=== PATIENT | female | born 1990 | race African-American/Black ===

== ENCOUNTER 2018-10-10 09:55 | Emergency (ER) | payer OTHER ==
[2018-10-10 10:26] VITALS: BP 106/60; PULSE 55; TEMP 98.6; BMI 20.7
--- NOTE | 2018-10-10 10:56 | PDOC ---
History of Present Illness - General History Source: Patient - History of Present Illness Presenting Symptoms: Other - General Chief Complaint: Chest Pain Stated Complaint: Shortnes of Breath Time Seen by Provider: 10/10/18 10:34 Past History - Past Medical History Asthma: Yes (last attack yrs ago) Cancer: No Cardiac Disorders: No COPD: No Diabetes: No HTN: No Seizures: No Thyroid Disease: No - Reproductive History (#): 3 Para: 0 Cervical CA: No Dysfunctional Uterine Bleeding: No Ectopic : No Endometrial CA: No Polycystic Ovaries: No Therapeutic (s) & number: Yes (2) Tubal Ligation: No - Immunization History Immunization Up to Date: Yes - Suicide/Smoking/Psychosocial Hx Smoking Status: No Smoking History: Current every day smoker Have you smoked in the past 12 months: Yes Number of Cigarettes Smoked Daily: 3 Information on smoking cessation initiated: No Hx Alcohol Use: No Drug/Substance Use Hx: No Substance Use Type: None Hx Substance Use Treatment: No - Past Medical History Allergies/Adverse Reactions: Allergies Allergy/AdvReac Type Severity Reaction Status Date / Time No Known Allergies Allergy Verified 10/10/18 10:19 Home Medications: Ambulatory Orders Ciprofloxacin 0.3% Eye Drops [Ciloxan 0.3% Eye Drops -] 4 drop OD Q4H 06/19/16 Albuterol 0.083% Nebulizer Ifeoma [Ventolin 0.083% Nebulizer Soln -] 1 amp NEB Q6H #30 amp 10/10/18 Prednisone [Deltasone] 40 mg PO DAILY #8 tablet 10/10/18 Review of Systems - Review of Systems HEENTM: Yes: Throat Pain Respiratory: Yes: Shortness of Breath. No: Wheezing Cardiac (ROS): Yes: Chest Tightness : No: Burning, Dysuria, Flank Pain, Hematuria *Physical Exam - Physical Exam General Appearance: Yes: Appropriately Dressed. No: Apparent Distress HEENT: positive: Normal ENT Inspection, Normal Voice. negative: Scleral Icterus (R), Scleral Icterus (L) Neck: positive: Supple. negative: Lymphadenopathy (R), Lymphadenopathy (L) Respiratory/Chest: positive: Lungs Clear, Normal Breath Sounds. negative: Respiratory Distress, Wheezing Cardiovascular: positive: Regular Rate, S1, S2 Integumentary: positive: Dry, Warm Neurologic: positive: Fully Oriented, Alert, Normal Mood/Affect - Vital Signs Last Vital Signs Temp Pulse Resp BP Pulse Ox 98.6 F 55 L 18 106/60 98 10/10/18 10:20 10/10/18 10:20 10/10/18 10:20 10/10/18 10:20 10/10/18 10:20 - Procedure Monitoring Vital Signs: Procedure Monitoring Vital Signs Temperature 98.6 F 10/10/18 10:20 Pulse Rate 55 L 10/10/18 10:20 Respiratory Rate 18 10/10/18 10:20 Blood Pressure 106/60 10/10/18 10:20 O2 Sat by Pulse Oximetry (%) 98 10/10/18 10:20 - ADDITIONAL ORDERS Additional order review: Laboratory Results 10/10/18 11:40 Urine Color Yellow Urine Appearance Slcloudy Urine pH 6.0 Ur Specific [place] 1.027 Urine Protein Negative Urine Glucose (UA) Negative Urine Ketones Negative Urine Blood Negative Urine Nitrite Negative Urine Bilirubin Negative Urine Urobilinogen 4.0 e.u/dl H Ur Leukocyte Esterase Negative Urine HCG, Qual Negative - Medications Given in the ED: ED Medications Discontinued Medications Generic Name Dose Route Start Last Admin Trade Name Matiasq PRN Reason Stop Dose Admin Albuterol/Ipratropium 1 amp 10/10/18 11:00 10/10/18 11:45 Duoneb - NEB 10/10/18 11:46 1 amp Q15M DARIAN Administration Ibuprofen 800 mg 10/10/18 10:57 10/10/18 11:55 Motrin - PO 10/10/18 10:58 800 mg ONCE ONE Administration Prednisone 60 mg 10/10/18 10:57 10/10/18 11:55 Deltasone - PO 10/10/18 10:58 60 mg ONCE ONE Administration Medical Decision Making - Medical Decision Making The patient was seen and evaluated in conjunction with midlevel provider under my direct supervision, ancillary studies were reviewed. I agree with the plan as outlined by JAY Gonzalez. HPI, workup/dispo as outlined. ancillary testing reviewed - neg strep, getting nebs and steroids for asthma. well appearing in vertical chair, VS wnl. discharge in stable condition, return precautions provided. 10/10/18 12:12 (Megan Amador) 10/10/18 10:54 28-year-old female, history of asthma, smoker, here with severe sore throat for 3 days. No ear pain, cough, fever or chills. Also complaining of some shortness of breath and chest tightness for the past 2 days, similar consistent with her asthma. States the pump only relieves symptoms temporarily. States she ran out of the nebulizer solution for her machine. No admissions or intubations in the past. Pt also reports "strong smelling" urine recently. No dysuria, freq, flank pain, n/v/f/c. See exam Asthma flare Stable w/ clear lungs -nebs -pred -reassess Throat pain HEENT wnl -strep pending 10/10/18 14:09 Strep and UA neg. Pt asymptomatic at this time with clear lungs. Able to ambulate without shortness of breath. Will dc with Pred taper. Smoking cessation encouraged (Karel Gonzalez) *DC/Admit/Observation/Transfer Diagnosis at time of Disposition: Sore throat Asthma flare Qualifiers: Asthma severity: mild Asthma persistence: unspecified Qualified Code(s): J45.901 - Unspecified asthma with (acute) exacerbation - Discharge Dispostion Disposition: HOME Condition at time of disposition: Improved - Prescriptions Prescriptions: Albuterol 0.083% Nebulizer Ifeoma [Ventolin 0.083% Nebulizer Soln -] 1 amp NEB Q6H #30 amp Prednisone [Deltasone] 40 mg PO DAILY #8 tablet - Referrals Referrals: Bob Kendall MD [Primary Care Provider] - - Patient Instructions Printed Discharge Instructions: DI for Asthma -- Adult Additional Instructions: Take medications as prescribed and strongly consider smoking cessation - Post Discharge Activity Forms/Work/School Notes: Back to Work
[2018-10-10] MEDS ORDERED: IBUPROFEN 400 MG TABLET (FP) PO ONE ×2 (10:57→11:20)
[2018-10-10] MEDS ORDERED: predniSONE 20 MG TABLET (UD) PO ONE (10:57)
[2018-10-10] MEDS: ALBUTEROL SO4 2.5/IPRATROPIUM 0.5 INH SOL 3 ML VIAL.NEB. NEB SCH ×4 (11:00→11:45)
[2018-10-10] MEDS ORDERED: predniSONE 20 MG TABLET (UD) ONE (11:20)
[2018-10-10] MEDS ORDERED: ALBUTEROL SO4 2.5/IPRATROPIUM 0.5 INH SOL 3 ML VIAL.NEB. NEB ONE (11:20)
[2018-10-10 13:14] LABS: URINE APPEARANCE SLCLOUDY; URINE BILIRUBIN NEGATIVE (<2.0 mg/dL); URINE COLOR YELLOW; URINE GLUCOSE (UA) NEGATIVE (NEGATIVE); URINE KETONE NEGATIVE (NEGATIVE); URINE LEUK ESTERASE NEGATIVE (NEGATIVE); URINE NITRITE NEGATIVE (NEGATIVE); URINE PROTEIN NEGATIVE (NEGATIVE); URINE UROBILINOGEN 4.0 E.U/dl mg/dL (0.2-1.0)
[2018-10-10 13:15] LABS: HCG,QUALITATIVE URINE Negative
--- NOTE | 2018-10-12 11:57 | EKG ---
Test Reason : Blood Pressure : / mmHG Vent. Rate : 098 BPM Atrial Rate : 029 BPM P-R Int : 160 ms QRS Dur : 090 ms QT Int : 382 ms P-R-T Axes : 054 056 -17 degrees QTc Int : 487 ms MARKED SINUS BRADYCARDIA WITH FREQUENT and consecutive PREMATURE VENTRICULAR COMPLEXES nonsustained Ventricular tachycardia - 6 beats POSSIBLE LEFT ATRIAL ENLARGEMENT NONSPECIFIC ST ABNORMALITY ABNORMAL QRS-T ANGLE, CONSIDER PRIMARY T WAVE ABNORMALITY ABNORMAL ECG NO PREVIOUS ECGS AVAILABLE Confirmed by NATI GUEVARA, ESTELA ([id number]) on 10/12/2018 11:56:35 AM Referred By: Confirmed By:ESTELA DAMIAN MD
== END 2018-10-10 15:47 | disposition home or self-care (01) ==
LOC: JER 09:55
PROC: 3E0F7GC Introduction of Other Therapeutic Substance into Respiratory Tract, Via Natural or Artificial Opening (ICD-10-PCS; principal; 2018-10-10)
DX: J45.901 Unspecified asthma with (acute) exacerbation (principal); J02.9 Acute pharyngitis, unspecified; F17.210 Nicotine dependence, cigarettes, uncomplicated
CPT/HCPCS: 81003; 84703; 87070; 87086; 87186; 87880; 93005; 93010; 94640; 99281-25

== ENCOUNTER 2019-01-03 14:07 | Emergency (ER) | payer OTHER ==
--- NOTE | 2019-01-03 14:16 | PDOC ---
Rapid Medical Evaluation Time Seen by Provider: 01/03/19 14:14 Medical Evaluation: Allergies Allergy/AdvReac Type Severity Reaction Status Date / Time No Known Allergies Allergy Verified 01/03/19 14:14 01/03/19 14:14 I have performed a brief in-person evaluation of this patient. The patient presents with a chief complaint of: vomiting x days- LMP- "October " Pertinent physical exam findings: Abd SNTND. No CVAT. I have ordered the following: UA, upreg, labs The patient will proceed to the ED for further evaluation. Discharge Disposition - Diagnosis Vomiting - Referrals - Patient Instructions - Post Discharge Activity
[2019-01-03 14:17] VITALS: BP 112/68; PULSE 72; TEMP 97.6; BMI 21.9
[2019-01-03] MEDS ORDERED: SODIUM CHLORIDE 1,000 ML IV STA (14:17)
[2019-01-03] MEDS ORDERED: ONDANSETRON 4 MG/2 ML VIAL IVPUSH ONE (14:17)
[2019-01-03 14:50] LABS: BASO % 0.6 % (0-2.0); HEMATOCRIT 42.7 % (32.4-45.2); HEMOGLOBIN 14.5 GM/dL (10.7-15.3); LYMPH % 18.3 % (8-40); MCH 31.3 pg (25.7-33.7); MCHC 34.1 g/dl (32.0-36.0); MEAN CELL VOLUME 91.8 fl (80-96); MEAN PLT VOLUME 9.3 fl (7.5-11.1); MONO % 6.5 % (3.8-10.2); NEUT % 71.6 % (42.8-82.8); PLATELET COUNT 184 K/MM3 (134-434); RBC 4.65 M/mm3 (3.60-5.2); RDW 12.6 % (11.6-15.6); WHITE BLOOD COUNT 8.9 K/mm3 (4.0-10.0)
[2019-01-03 14:58] LABS: PH,URINE 6.5 (5.0-8.0); URINE APPEARANCE CLEAR; URINE BILIRUBIN NEGATIVE (NEGATIVE); URINE COLOR YELLOW; URINE GLUCOSE (UA) NEGATIVE (NEGATIVE); URINE KETONE NEGATIVE (NEGATIVE); URINE LEUK ESTERASE NEGATIVE (NEGATIVE); URINE NITRITE NEGATIVE (NEGATIVE); URINE PROTEIN NEGATIVE (NEGATIVE)
--- NOTE | 2019-01-03 15:14 | PDOC ---
History of Present Illness - General Chief Complaint: Nausea/Vomiting Stated Complaint: VOMITING Time Seen by Provider: 01/03/19 14:14 History Source: Patient Exam Limitations: No Limitations - History of Present Illness Travel History: No Initial Comments: 01/03/19 15:11 28 y/o female with hx of asthma presents to the ED with c/o n/v, mild dysuria, and lower abd cramping x 3 days without fever, diarrhea, headache, abd distention, or recent travel. Pt states LMP in Oct and had her IUD removed in august. Pt has no other complaints and states did not do a home preg test. Timing/Duration: reports: constant Quality: reports: mild, cramping Abdominal Pain Onset Location: reports: suprapubic (generalized) Pain Radiation: reports: no radiation Aggravating Factors: improves with: None Alleviating Factors: improves with: None Past History - Travel Traveled outside of the country in the last 30 days: No Close contact w/someone who was outside of country & ill: No - Past Medical History Allergies/Adverse Reactions: Allergies Allergy/AdvReac Type Severity Reaction Status Date / Time No Known Allergies Allergy Verified 01/03/19 14:14 Home Medications: Ambulatory Orders Ciprofloxacin 0.3% Eye Drops [Ciloxan 0.3% Eye Drops -] 4 drop OD Q4H 06/19/16 Albuterol 0.083% Nebulizer Ifeoma [Ventolin 0.083% Nebulizer Soln -] 1 amp NEB Q6H #30 amp 10/10/18 Prednisone [Deltasone] 40 mg PO DAILY #8 tablet 10/10/18 Cephalexin [Keflex] 500 mg PO BID #14 capsule 10/12/18 Asthma: Yes (last attack yrs ago) Cancer: No Cardiac Disorders: No COPD: No Diabetes: No HTN: No Seizures: No Thyroid Disease: No - Reproductive History (#): 3 Para: 0 Cervical CA: No Dysfunctional Uterine Bleeding: No Ectopic : No Endometrial CA: No Polycystic Ovaries: No Therapeutic (s) & number: Yes (2) Tubal Ligation: No - Immunization History Immunization Up to Date: Yes - Suicide/Smoking/Psychosocial Hx Smoking Status: No Smoking History: Never smoked Have you smoked in the past 12 months: Yes Number of Cigarettes Smoked Daily: 3 Information on smoking cessation initiated: No Hx Alcohol Use: No Drug/Substance Use Hx: No Substance Use Type: None Hx Substance Use Treatment: No Patient Lives Alone: No Lives with/in: parents Review of Systems - Review of Systems Able to Perform ROS?: Yes Constitutional: No: Symptoms Reported HEENTM: No: Symptoms Reported Respiratory: No: Symptoms reported Cardiac (ROS): No: Symptoms Reported ABD/GI: Yes: Nausea, Vomiting, Abdominal cramping : Yes: Dysuria Musculoskeletal: No: Symptoms Reported Integumentary: No: Symptoms Reported Neurological: No: Symptoms reported Endocrine: No: Symptoms Reported Hematologic/Lymphatic: No: Symptoms Reported *Physical Exam - Vital Signs Last Vital Signs Temp Pulse Resp BP Pulse Ox 97.6 F 72 20 112/68 100 01/03/19 14:14 01/03/19 14:14 01/03/19 14:14 01/03/19 14:14 01/03/19 14:14 - Physical Exam General Appearance: Yes: Nourished, Appropriately Dressed. No: Apparent Distress HEENT: positive: Pharynx Normal Neck: positive: Normal Thyroid, Supple Respiratory/Chest: positive: Lungs Clear, Normal Breath Sounds. negative: Respiratory Distress, Accessory Muscle Use Cardiovascular: positive: Regular Rhythm, Regular Rate. negative: Murmur Gastrointestinal/Abdominal: positive: Normal Bowel Sounds, Soft, Tenderness ( mild left and mid suparpubic/ llq). negative: Distended, Guarding, Rebound Musculoskeletal: negative: CVA Tenderness Extremity: positive: Normal Capillary Refill Integumentary: positive: Normal Color, Warm, Moist Neurologic: positive: Motor Strength 5/5 (ambulatory) ED Treatment Course - LABORATORY CBC & Chemistry Diagram: 01/03/19 14:40 01/03/19 14:40 - ADDITIONAL ORDERS Additional order review: 01/03/19 14:40 RBC 4.65 MCV 91.8 MCHC 34.1 RDW 12.6 MPV 9.3 D Neutrophils % 71.6 Lymphocytes % 18.3 D Monocytes % 6.5 Eosinophils % 3.0 D Basophils % 0.6 Medical Decision Making - Medical Decision Making 01/03/19 15:16 CC: llq / left suprapubic pain w/ n/v x 3 days. Pt also c/o of mild dysuria and dark colored urine. LMP 11/15 Exam: mild tenderness to llq and suprapubic region Plan: labs, urine, ivf, zofran 01/03/19 15:18 Laboratory Tests 01/03/19 14:47 Urine Nitrite Negative Ur Leukocyte Esterase Negative Urine HCG, Qual Positive Pt ordered for tv preg u/s 01/03/19 17:35 Laboratory Tests 01/03/19 01/03/19 01/03/19 14:40 14:40 14:47 WBC 8.9 Hgb 14.5 Hct 42.7 Plt Count 184 D Neutrophils % 71.6 Sodium 135 L Potassium 3.7 Chloride 100 Carbon Dioxide 26 Anion Gap 9 BUN 9 Creatinine 0.7 Random Glucose 90 AST 19 ALT 18 Alkaline Phosphatase 63 Albumin 3.4 Beta HCG, Quant 90252.8 Urine Bilirubin Negative Urine Urobilinogen 1.0 Ur Leukocyte Esterase Negative U/s shows IUP at 9 wks and 6 days. FHR 165. Normal vasc flow to kurtis ovaries *DC/Admit/Observation/Transfer Diagnosis at time of Disposition: Nausea and vomiting during - Discharge Dispostion Disposition: HOME Condition at time of disposition: Improved - Referrals Referrals: Bob Kendall MD [Primary Care Provider] - - Patient Instructions Printed Discharge Instructions: Managing Symptoms of , DI for -- Discomforts and Remedies Additional Instructions: Please start vitamins. Follow up with your HAND STONECUTTER and return if you have abd pain, vag bleeding, or severe vomiting - Post Discharge Activity
[2019-01-03 15:16] LABS: HCG,QUALITATIVE URINE Positive
[2019-01-03] MEDS ORDERED: ONDANSETRON 4 MG/2 ML VIAL ONE (15:24)
[2019-01-03 15:48] LABS: ALBUMIN 3.4 g/dl (3.4-5.0); ALK PHOS 63 U/L (45-117); ANION GAP 9 MMOL/L (8-16); BILIRUBIN,TOTAL 0.8 mg/dL (0.2-1); BLOOD UREA NITROGEN 9 mg/dL (7-18); CALCIUM 8.6 mg/dL (8.5-10.1); CHLORIDE 100 mmol/L (98-107); CO2 26 mmol/L (21-32); CREATININE 0.7 mg/dL (0.55-1.3); GLUCOSE,RANDOM 90 mg/dL (74-106); POTASSIUM 3.7 mmol/L (3.5-5.1); SGOT/AST 19 U/L (15-37); SGPT/ALT 18 U/L (13-61); SODIUM 135 mmol/L (136-145); TOT PROT 7.5 g/dl (6.4-8.2)
[2019-01-05 09:14] LABS: LIPASE 152 U/L (73-393)
== END 2019-01-03 18:22 | disposition home or self-care (01) ==
LOC: JER 14:07
PROC: 3E0337Z Introduction of Electrolytic and Water Balance Substance into Peripheral Vein, Percutaneous Approach (ICD-10-PCS; principal; 2019-01-03)
PROC: 3E033GC Introduction of Other Therapeutic Substance into Peripheral Vein, Percutaneous Approach (ICD-10-PCS; 2019-01-03)
DX: O26.891 Other specified pregnancy related conditions, first trimester (principal); O21.0 Mild hyperemesis gravidarum; Z3A.09 9 weeks gestation of pregnancy
CPT/HCPCS: 36415; 76801-TC; 80053; 81003; 83690; 84702; 84703; 85025; 87086; 87186; 96361; 96374; 99282-25; J7030

== ENCOUNTER 2019-07-26 16:26 | Emergency (ER) | payer OTHER ==
--- NOTE | 2019-07-26 16:32 | PDOC ---
Rapid Medical Evaluation Chief Complaint: Vaginal Bleeding Time Seen by Provider: 07/26/19 16:29 Medical Evaluation: Allergies Allergy/AdvReac Type Severity Reaction Status Date / Time No Known Allergies Allergy Verified 01/03/19 14:14 07/26/19 16:30 Pt c/o:vag bleeding since today, passed large clot in toilet Pt on brief exam: vss, brb in sanitary pad PT ordered for: labs, urine, u/s pt to proceed to the ED Discharge Disposition - Diagnosis Vaginal bleeding - Discharge Dispostion Disposition: HOME Condition at time of disposition: Fair - Referrals - Patient Instructions Additional Instructions: Take your vitamins. Keep well-hydrated. Tylenol only for pain. Avoid medicines like Advil, Motrin, Naprosyn, Aleve or ibuprofen as this can lead to increased bleeding. Return to the emergency department for 2 days for repeat blood work and sonogram. Return to the emergency department immediately for severe pain, vaginal bleeding that requires more than 2 pads per hour or for any other symptoms. Thank you very much for choosing us to provide your emergent health care needs. - Post Discharge Activity
[2019-07-26 16:34] VITALS: BMI 21.4
[2019-07-26 17:06] LABS: BASO % 1.1 % (0-2.0); EOS % 2.3 % (0-4.5); HEMATOCRIT 43.3 % (32.4-45.2); HEMOGLOBIN 14.3 GM/dL (10.7-15.3); LYMPH % 29.2 % (8-40); MCH 29.7 pg (25.7-33.7); MCHC 32.9 g/dl (32.0-36.0); MEAN CELL VOLUME 90.1 fl (80-96); MEAN PLT VOLUME 8.7 fl (7.5-11.1); MONO % 5.8 % (3.8-10.2); NEUT % 61.6 % (42.8-82.8); PLATELET COUNT 270 K/MM3 (134-434); RDW 13.1 % (11.6-15.6); WHITE BLOOD COUNT 12.2 K/mm3 (4.0-10.0)
[2019-07-26 17:09] LABS: EPI CELLS 1.4 /HPF (0-5/HPF); HYALINE CASTS 1 /lpf (0-8); PH,URINE 5.5 (5.0-8.0); URINE APPEARANCE CLEAR; URINE BACTERIA 130.9 /hpf (NEGATIVE); URINE BILIRUBIN NEGATIVE (NEGATIVE); URINE COLOR RED; URINE GLUCOSE (UA) NEGATIVE (NEGATIVE); URINE KETONE NEGATIVE (NEGATIVE); URINE LEUK ESTERASE TRACE (NEGATIVE); URINE NITRITE NEGATIVE (NEGATIVE); URINE PROTEIN 2+ (NEGATIVE); URINE RBC 1875 /hpf (0-4); URINE UROBILINOGEN 0.2 mg/dL (0.2-1.0); URINE WBC 3 /hpf (0-5)
[2019-07-26] MEDS ORDERED: ACETAMINOPHEN 500 MG TABLET (FP) PO ONE (17:18)
[2019-07-26] MEDS ORDERED: ACETAMINOPHEN 500 MG TABLET (FP) ONE (17:24)
--- NOTE | 2019-07-26 17:39 | PDOC ---
History of Present Illness - General Chief Complaint: Vaginal Bleeding Stated Complaint: VAGINAL BLEED LMP 05/30/19 Time Seen by Provider: 07/26/19 16:29 History Source: Patient Exam Limitations: No Limitations - History of Present Illness Travel History: No Initial Comments: 07/26/19 17:27 HISTORY OF PRESENT ILLNESS: This is a 29-year-old G4, P1 with LMP 06/09/2019 presents to the emergency department with vaginal bleeding with clots and lower abdominal cramping starting today. Patient reports she had a positive home test 2 weeks ago and is scheduled for first visit on Wednesday. She denies urinary symptoms. No recent travel or sick contacts. PAST MEDICAL HISTORY: Denies past medical history SURGICAL HISTORY: Denies ALLERGIES: No known drug allergies REVIEW OF SYSTEMS General/Constitutional: Denies fever or chills. Denies weakness, weight change. HEENT: Denies change in vision. Denies ear pain or discharge. Denies sore throat. Cardiovascular: Denies chest pain or shortness of breath. Respiratory: Denies cough, wheezing, or hemoptysis. Gastrointestinal: Denies nausea, vomiting, diarrhea or constipation. Denies rectal bleeding. Genitourinary: See HPI Musculoskeletal: Denies joint or muscle swelling or pain. Denies neck or back pain. Skin and breasts: Denies rash or easy bruising. Neurologic: Denies headache, vertigo, loss of consciousness, or loss of sensation. Psychiatric: Denies depression or anxiety. Endocrine: Denies increased thirst. Denies abnormal weight change. Hematologic/Lymphatic: Denies anemia, easy bleeding, or history of blood clots. Allergic/Immunologic: Denies hives or skin allergy. Denies latex allergy. PHYSICAL EXAM General Appearance: Well-appearing, appropriately dressed. No apparent distress , no intoxication. Respiratory/Chest: Lungs CTAB. No shortness of breath, chest tenderness, respiratory distress, accessory muscle use. No crackles, rales, rhonchi, stridor , wheezing, dullness Cardiovascular: RRR. S1, S2. No JVD, murmur, bradycardia, tachycardia. Vascular Pulses: Dorsalis-Pedis (R): 2+, Dorsalis-Pedis (L): 2+ Gastrointestinal/Abdominal: Normal bowel sounds. Abdomen soft, non-distended. No tenderness or rebound tenderness. No organomegaly, pulsatile mass, guarding, hernia, hepatomegaly, splenomegaly. Past History - Past Medical History Allergies/Adverse Reactions: Allergies Allergy/AdvReac Type Severity Reaction Status Date / Time No Known Allergies Allergy Verified 07/26/19 16:33 Home Medications: Ambulatory Orders Albuterol 0.083% Nebulizer Ifeoma [Ventolin 0.083% Nebulizer Soln -] 1 amp NEB Q6H #30 amp 10/10/18 Asthma: Yes (last attack yrs ago) Cancer: No Cardiac Disorders: No COPD: No Diabetes: No HTN: No Seizures: No Thyroid Disease: No - Reproductive History (#): 3 Para: 0 Cervical CA: No Dysfunctional Uterine Bleeding: No Ectopic : No Endometrial CA: No Polycystic Ovaries: No Therapeutic (s) & number: Yes (2) Tubal Ligation: No - Immunization History Immunization Up to Date: Yes - Psycho Social/Smoking Cessation Hx Smoking Status: No Smoking History: Never smoked Have you smoked in the past 12 months: Yes Number of Cigarettes Smoked Daily: 3 Information on smoking cessation initiated: No Hx Alcohol Use: No Drug/Substance Use Hx: No Substance Use Type: None Hx Substance Use Treatment: No *Physical Exam - Vital Signs Last Vital Signs Temp Pulse Resp BP Pulse Ox 98.2 F 60 17 118/65 99 07/26/19 16:31 07/26/19 16:31 07/26/19 16:31 07/26/19 16:31 07/26/19 16:55 - Physical Exam Comments:: 07/26/19 18:54 RN Delia present as painting manager. Female Pelvic Exam: positive: normal external exam, cervical os closed, normal adnexa, vaginal bleeding (No pulling noted. No blood clots seen.). negative: CMT, discharge ED Treatment Course - LABORATORY CBC & Chemistry Diagram: 07/26/19 16:41 07/26/19 16:41 - ADDITIONAL ORDERS Additional order review: Laboratory Results 07/26/19 16:41 Urine Color Red Urine Appearance Clear Urine pH 5.5 Ur Specific [place] 1.008 L Urine Protein 2+ H Urine Glucose (UA) Negative Urine Ketones Negative Urine Blood 3+ H Urine Nitrite Negative Urine Bilirubin Negative Urine Urobilinogen 0.2 Ur Leukocyte Esterase Trace Urine WBC (Auto) 3 Urine RBC (Auto) 1875 Urine Casts (Auto) 1 U Epithel Cells (Auto) 1.4 Urine Bacteria (Auto) 130.9 Medical Decision Making - Medical Decision Making 07/26/19 17:38 A/P: 29-year-old woman with vaginal bleeding in early Labs and ultrasound per RME Tylenol 1 g orally now Reassess 07/26/19 18:18 Ultrasound is read by Dr. Hernández: Uterus is normal in size measuring 10 x 6.5 x 5.2 cm. No uterine masses are seen. Thickened endometrium of 1.6 cm is identified. There is no sonographic evidence of a viable intrauterine gestation. If a very early is clinically suspected correlation with serial beta hCG levels and follow-up ultrasound is recommended. The ovaries are normal in size and texture with arterial and venous flow documented to both ovaries. There is no evidence of adnexal masses or free pelvic fluid collections. Impression: Essentially normal pelvic sonogram with no sonographic evidence of a viable intrauterine gestation. 07/26/19 18:52 Blood type is B+. Beta-hCG 3574. Urinalysis shows 3+ blood, 2+ protein and 1875 RBCs Given closed cervical loss and ultrasound findings it is unknown whether the patient has completed a miscarriage or is having vaginal bleeding in early . Patient has been instructed return in 2 days for repeat lab work and ultrasound. I discussed the physical exam findings, ancillary test results and final diagnoses with the patient. I answered all of the patient's questions. The patient was satisfied with the care received and felt comfortable with the discharge plan and treatment plan. The patient will call their primary care physician within 24 hours to arrange follow-up and will return to the Emergency Department with any new, persistent or worsening symptoms. Discharge - Discharge Information Problems reviewed: Yes Clinical Impression/Diagnosis: Vaginal bleeding Condition: Fair Disposition: HOME - Admission No - Follow up/Referral - Patient Discharge Instructions Additional Instructions: Take your vitamins. Keep well-hydrated. Tylenol only for pain. Avoid medicines like Advil, Motrin, Naprosyn, Aleve or ibuprofen as this can lead to increased bleeding. Return to the emergency department for 2 days for repeat blood work and sonogram. Return to the emergency department immediately for severe pain, vaginal bleeding that requires more than 2 pads per hour or for any other symptoms. Thank you very much for choosing us to provide your emergent health care needs. - Post Discharge Activity
[2019-07-26 17:47] LABS: BILIRUBIN,TOTAL 0.8 mg/dL (0.2-1); BLOOD UREA NITROGEN 11.2 mg/dL (7-18); CALCIUM 9.6 mg/dL (8.5-10.1); CREATININE 0.8 mg/dL (0.55-1.3); POTASSIUM 3.8 mmol/L (3.5-5.1); TOT PROT 7.9 g/dl (6.4-8.2)
[2019-07-26 18:06] VITALS: BP 119/59; PULSE 79; TEMP 97.5
== END 2019-07-26 19:07 | disposition home or self-care (01) ==
LOC: JER 16:26
DX: N93.9 Abnormal uterine and vaginal bleeding, unspecified (principal); J45.909 Unspecified asthma, uncomplicated; Z72.0 Tobacco use
CPT/HCPCS: 36415; 76817-TC; 80053; 81003; 84702; 85025; 86850; 86900; 86901; 87086; 87186; 99283-25

== ENCOUNTER 2019-07-28 17:10 | Emergency (ER) | payer OTHER ==
[2019-07-28 17:17] VITALS: BP 103/53; PULSE 85; TEMP 98.1; BMI 21.4
--- NOTE | 2019-07-28 17:18 | PDOC ---
Rapid Medical Evaluation Chief Complaint: Vaginal Bleeding Time Seen by Provider: 07/28/19 17:13 Medical Evaluation: Allergies Allergy/AdvReac Type Severity Reaction Status Date / Time No Known Allergies Allergy Verified 07/28/19 17:16 Vital Signs Temp Pulse Resp BP Pulse Ox 98.1 F 85 18 103/53 L 99 07/28/19 17:15 07/28/19 17:15 07/28/19 17:15 07/28/19 17:15 07/28/19 17:15 07/28/19 17:17 Pt c/o: here for repeat u/s and beta, still with vag bleeding and abd cramping Pt on brief exam: vss, brb on pad Pt ordered for: beta hcg and u/s Pt proceed to the ED Discharge Disposition - Diagnosis Miscarriage - Discharge Dispostion Disposition: HOME Condition at time of disposition: Stable - Referrals - Patient Instructions Additional Instructions: Make an appointment with your TELETYPESETTER MONITOR for reevaluation. Return to the emergency department immediately for severe pain, vaginal bleeding that requires more than 2 pads per hour or for any other symptoms. Thank you very much for choosing us to provide your emergent health care needs. - Post Discharge Activity
--- NOTE | 2019-07-28 17:57 | PDOC ---
History of Present Illness - General Chief Complaint: Vaginal Bleeding Stated Complaint: MISSCARRIAGE F/UP Time Seen by Provider: 07/28/19 17:13 History Source: Patient Exam Limitations: No Limitations - History of Present Illness Initial Comments: 07/28/19 17:56 HISTORY OF PRESENT ILLNESS: This is a 29-year-old woman who presents to the emergency department for repeat beta and ultrasound testing. Patient was seen and evaluated in this emergency department 2 days ago and was noted to have some vaginal bleeding and no identifiable on ultrasound. Patient likely had a miscarriage on that day but is here for reevaluation of beta. Asymptomatic at present. No recent travel or sick contacts. PAST MEDICAL HISTORY: Denies past medical history SURGICAL HISTORY: Denies ALLERGIES: No known drug allergies REVIEW OF SYSTEMS General/Constitutional: Denies fever or chills. Denies weakness, weight change. HEENT: Denies change in vision. Denies ear pain or discharge. Denies sore throat. Cardiovascular: Denies chest pain or shortness of breath. Respiratory: Denies cough, wheezing, or hemoptysis. Gastrointestinal: Denies nausea, vomiting, diarrhea or constipation. Denies rectal bleeding. Genitourinary: See HPI Musculoskeletal: Denies joint or muscle swelling or pain. Denies neck or back pain. Skin and breasts: Denies rash or easy bruising. Neurologic: Denies headache, vertigo, loss of consciousness, or loss of sensation. Psychiatric: Denies depression or anxiety. Endocrine: Denies increased thirst. Denies abnormal weight change. Hematologic/Lymphatic: Denies anemia, easy bleeding, or history of blood clots. Allergic/Immunologic: Denies hives or skin allergy. Denies latex allergy. PHYSICAL EXAM General Appearance: Well-appearing, appropriately dressed. No apparent distress , no intoxication. Gastrointestinal/Abdominal: Normal bowel sounds. Abdomen soft, non-distended. No tenderness or rebound tenderness. No organomegaly, pulsatile mass, guarding, hernia, hepatomegaly, splenomegaly. Past History - Past Medical History Allergies/Adverse Reactions: Allergies Allergy/AdvReac Type Severity Reaction Status Date / Time No Known Allergies Allergy Verified 07/28/19 17:16 Home Medications: Ambulatory Orders Albuterol 0.083% Nebulizer Ifeoma [Ventolin 0.083% Nebulizer Soln -] 1 amp NEB Q6H PRN 07/28/19 Asthma: Yes (last attack yrs ago) Cancer: No Cardiac Disorders: No COPD: No Diabetes: No HTN: No Seizures: No Thyroid Disease: No - Reproductive History (#): 3 Para: 0 Cervical CA: No Dysfunctional Uterine Bleeding: No Ectopic : No Endometrial CA: No Polycystic Ovaries: No Therapeutic (s) & number: Yes (2) Tubal Ligation: No - Immunization History Immunization Up to Date: Yes - Psycho Social/Smoking Cessation Hx Smoking Status: No Smoking History: Never smoked Have you smoked in the past 12 months: Yes Number of Cigarettes Smoked Daily: 3 Hx Alcohol Use: No Drug/Substance Use Hx: No Substance Use Type: None Hx Substance Use Treatment: No *Physical Exam - Vital Signs Last Vital Signs Temp Pulse Resp BP Pulse Ox 98.1 F 85 18 103/53 L 99 07/28/19 17:15 07/28/19 17:15 07/28/19 17:15 07/28/19 17:15 07/28/19 17:15 Medical Decision Making - Medical Decision Making 07/28/19 17:57 A/P: 29-year-old woman for reevaluation of Beta-hCG Transvaginal ultrasound Reassess 07/28/19 19:06 Ultrasound was read by Dr. Lawson: Comparison to an exam of 07/26/2019 development of a 0.7 cm fluid structure is seen within the endometrial canal without definite associated yolk sac or embryonic pole at this time.? Representing an early true gestational sac versus a pseudo-gestational sac associated with ectopic . Otherwise clinically indicated correlate with close follow-up sonography. Beta hCG-702.5 today. On 07/26/2019- 3574. Discharge home to follow-up with OB I discussed the physical exam findings, ancillary test results and final diagnoses with the patient. I answered all of the patient's questions. The patient was satisfied with the care received and felt comfortable with the discharge plan and treatment plan. The patient will call their primary care physician within 24 hours to arrange follow-up and will return to the Emergency Department with any new, persistent or worsening symptoms. Discharge - Discharge Information Problems reviewed: Yes Clinical Impression/Diagnosis: Miscarriage Condition: Stable Disposition: HOME - Admission No - Follow up/Referral - Patient Discharge Instructions Additional Instructions: Make an appointment with your WEB ENGINEER for reevaluation. Return to the emergency department immediately for severe pain, vaginal bleeding that requires more than 2 pads per hour or for any other symptoms. Thank you very much for choosing us to provide your emergent health care needs. - Post Discharge Activity
== END 2019-07-28 19:27 | disposition home or self-care (01) ==
LOC: JER 17:10
DX: O26.891 Other specified pregnancy related conditions, first trimester (principal); O03.4 Incomplete spontaneous abortion without complication; Z3A.00 Weeks of gestation of pregnancy not specified
CPT/HCPCS: 36415; 76817-TC; 84702; 99281-25

== ENCOUNTER 2020-05-25 09:35 | Inpatient (IN) | payer OTHER ==
[2020-05-25] MEDS ORDERED: ELECTROLYTE-148 SOLN 1,000 ML IV SCH (09:50)
[2020-05-25] MEDS ORDERED: AMPICILLIN - 2 GM in SODIUM CHLORIDE 100 ML IVPB ONE (09:50)
[2020-05-25] MEDS ORDERED: BUTORPHANOL TARTRATE 1 MG/ML VIAL IVPB ONE (09:50)
[2020-05-25] MEDS ORDERED: PROMETHAZINE HCL 25 MG/1 ML VIAL IVPB ONE (09:50)
[2020-05-25 10:42] VITALS: BMI 27.1
[2020-05-25] MEDS ORDERED: DEXTROSE 5%-LACTATED RINGERS 1,000 ML IV SCH (11:15)
[2020-05-25 11:18] LABS: BASO % 0.4 % (0-2.0); EOS % 1.9 % (0-4.5); HEMATOCRIT 36.4 % (32.4-45.2); HEMOGLOBIN 12.1 GM/dL (10.7-15.3); LYMPH % 12.8 % (8-40); MCH 29.8 pg (25.7-33.7); MCHC 33.3 g/dl (32.0-36.0); MEAN CELL VOLUME 89.5 fl (80-96); MONO % 8.3 % (3.8-10.2); NEUT % 76.6 % (42.8-82.8); PLATELET COUNT 120 K/MM3 (134-434); RBC 4.06 M/mm3 (3.60-5.2); RDW 13.2 % (11.6-15.6); WHITE BLOOD COUNT 12.8 K/mm3 (4.0-10.0)
[2020-05-25] MEDS ORDERED: OXYTOCIN 20 UNITS in 0.9% NS 20 UNIT/1,000 ML INFUS.BAG IV ONE (11:21)
[2020-05-25 11:25] LABS: INR 0.95 (0.83-1.09); PROTHROMBIN TIME (PATIENT) 11.2 SEC (9.7-13.0)
[2020-05-25 11:27] LABS: ACTIVATED PTT 29.8 SECONDS (25.2-36.5)
--- NOTE | 2020-05-25 11:31 | HP ---
Past Medical History - Admission Chief Complaint: Labor pain History of Present Illness: 30 yo @ 38 weeks gestation, EDC 06/05/20, admitted for labor pain. Upon admission she was 6cm dilated. History Source: Patient Limitations to Obtaining History: No Limitations - Past Medical History ...: 2 ...Para: 1 ...Term: 1 ...: 0 ...Spon : 0 ...Induced : 0 ...Living Children: 0 ...Multiple Gestation: 0 ...LMP: 08/30/19 ... Weeks Gestation by Dates: 38.3 ...EDC by Dates: 06/05/20 - Past Surgical History Past Surgical History: Yes: None Hx Myomectomy: No Hx Transabdominal Cerclage: No - Smoking History Smoking history: Never smoked Have you smoked in the past 12 months: No Aproximately how many cigarettes per day: 3 - Alcohol/Substance Use Hx Alcohol Use: No History of Substance Use: reports: None - Social History Usual Living Arrangement: Yes: With Significant Other History of Recent Travel: No Home Medications - Allergies Allergies/Adverse Reactions: Allergies Allergy/AdvReac Type Severity Reaction Status Date / Time No Known Allergies Allergy Verified 05/25/20 10:20 - Home Medications Home Medications: Ambulatory Orders Ferrous Sulfate [Feosol] 325 mg PO DAILY 05/25/20 Pnv No.95/Ferrous Fum/Folic AC [ Vitamin Tablet] 1 each PO DAILY 05/25/20 Family Medical History Family History: Unremarkable Review of Systems - Review of Systems Constitutional: reports: No Symptoms Eyes: reports: No Symptoms HENT: reports: No Symptoms Neck: reports: No Symptoms Cardiovascular: reports: No Symptoms Respiratory: reports: No Symptoms Gastrointestinal: reports: No Symptoms Genitourinary: reports: Pain Breasts: reports: No Symptoms Reported Musculoskeletal: reports: No Symptoms Neurological: reports: No Symptoms Psychiatric: reports: No Symptoms Pain Intensity: 8 Physical Exam - Maternity Vital Signs: Vital Signs Temperature 98.1 F 05/25/20 09:35 Pulse Rate 92 H 05/25/20 09:35 Respiratory Rate 05/25/20 09:35 Blood Pressure 133/73 05/25/20 09:35 O2 Sat by Pulse Oximetry (%) Constitutional: Yes: Well Nourished Eyes: Yes: Conjunctiva Clear HENT: Yes: Atraumatic Neck: Yes: Supple Cardiovascular: Yes: Regular Rate and Rhythm Lungs: Clear to auscultation - Abdominal Exam/OB Number of Fetuses: Single Presentation: Vertex Intensity: Strong - Vaginal Exam/OB Vaginal Bleeding: No Speculum Exam: No Dilatation (cm): 6 Effacement (%): 100 Presentation: Vertex/Position Station: 0 - Physical Exam Musculoskeletal: Yes: WNL Extremities: Yes: WNL ...Motor Strength: WNL Psychiatric: Yes: Alert, Oriented - Labs Lab Results: CBC, BMP 05/25/20 10:45 Problem List - Problems (1) 38 weeks gestation of Problems reviewed: Yes Code(s): Z3A.38 - 38 WEEKS GESTATION OF Assessment/Plan 38 weeks gestation Pain in labor Admit to L&D Analgesia as needed Anticipate
[2020-05-25] MEDS ORDERED: WITCH HAZEL 50% (TUCKS) 40 PAD/JAR PAD TP PRN (11:36)
[2020-05-25] MEDS ORDERED: METHYLERGONOVINE MALEATE 0.2 MG/1 ML AMP IM PRN (11:36)
[2020-05-25] MEDS ORDERED: BENZOCAINE 28 GM HEMORRHOIDAL OINTMENT TP PRN (11:36)
[2020-05-25] MEDS ORDERED: BENZOCAINE 20% 57 GM BOTTLE TP PRN (11:36)
[2020-05-25] MEDS ORDERED: BISACODYL 10 MG SUPP.RECT RC PRN (11:36)
--- NOTE | 2020-05-25 11:36 | PN ---
Delivery - Delivery Vaginal Delivery: Spontaneous Type of Anesthesia: Local Episiotomy/Laceration: None EBL (cc): 300 Delivery, Single - Feeding Plan Initial Plan: Elected not to breastfeed exclusively throughout hospitalization Remarks - Remarks Remarks: Normal spontaneous vaginal delivery of a live girl over intact perineum. Nose / Oropharynx suctioned @ perineum ( + thick meconium ) Cord clamped and cut. Baby handed to Drill Press Operator Helper. Placenta expelled spontaneously intact. Mother in stable condition.
[2020-05-25] MEDS ORDERED: OXYTOCIN 20 UNITS in 0.9% NS 20 UNIT/1,000 ML INFUS.BAG IV SCH (11:45)
[2020-05-25 11:48] LABS: ALBUMIN 2.7 g/dl (3.4-5.0); BILIRUBIN,TOTAL 0.6 mg/dL (0.2-1); BLOOD UREA NITROGEN 8.1 mg/dL (7-18); CALCIUM 8.6 mg/dL (8.5-10.1); CREATININE 0.5 mg/dL (0.55-1.3); POTASSIUM 3.4 mmol/L (3.5-5.1); TOT PROT 6.6 g/dl (6.4-8.2)
[2020-05-25] MEDS: IBUPROFEN 600 MG TABLET (FP) PO PRN ×2 (12:15→21:57)
[2020-05-25] MEDS: ACETAMINOPHEN 325 MG TABLET (FP) PO PRN ×2 (12:15→21:57)
[2020-05-25] MEDS: FERROUS SO4 325 MG TABLET (FP) PO SCH ×2 (12:23→18:39)
[2020-05-25] MEDS ORDERED: AMPICILLIN - 1 GM in SODIUM CHLORIDE 100 ML IVPB SCH (13:50)
[2020-05-25 13:56] LABS: COCAINE, UR NEGATIVE ng/ml (CUTOFF=300); METHADONE, UR NEGATIVE ng/ml (CUTOFF=300); OPIATES, URI NEGATIVE ng/ml (CUTOFF=300); PHENCYCLIDINE,URINE NEGATIVE ng/ml (CUTOFF=25); URINE BARBITURATES NEGATIVE ng/ml (CUTOFF=200)
[2020-05-25 14:00] LABS: URINE AMPHETAMINES NEGATIVE ng/ml (CUTOFF=500); URINE BENZODIAZEPINES NEGATIVE ng/ml (CUTOFF=200)
[2020-05-26 08:53] LABS: BASO % 0.4 % (0-2.0); HEMATOCRIT 36.3 % (32.4-45.2); HEMOGLOBIN 12.5 GM/dL (10.7-15.3); MCH 31.4 pg (25.7-33.7); MCHC 34.5 g/dl (32.0-36.0); MEAN PLT VOLUME 10.1 fl (7.5-11.1); MONO % 5.6 % (3.8-10.2); PLATELET COUNT 124 K/MM3 (134-434); RBC 3.98 M/mm3 (3.60-5.2); RDW 13.7 % (11.6-15.6); WHITE BLOOD COUNT 13.7 K/mm3 (4.0-10.0)
[2020-05-26] MEDS: FERROUS SO4 325 MG TABLET (FP) PO SCH ×3 (09:45→17:59)
[2020-05-26] MEDS: ACETAMINOPHEN 325 MG TABLET (FP) PO PRN ×2 (09:45→21:00)
[2020-05-26] MEDS: IBUPROFEN 600 MG TABLET (FP) PO PRN ×2 (09:45→20:55)
[2020-05-26] MEDS: PRENATAL VITAMINS W/ FOLIC ACID TABLET (FP) PO SCH (09:46)
--- NOTE | 2020-05-26 09:47 | PN ---
Post Progress Note - Subjective Subjective: 30 yo Para 2 status post vaginal delivery, seen and evaluated. Doing well. Post Day: 1 Type of Delivery: Vital Signs: Vital Signs Temperature 97.8 F 05/26/20 05:48 Pulse Rate 78 05/26/20 05:48 Respiratory Rate 20 05/26/20 05:48 Blood Pressure 122/62 05/26/20 05:48 O2 Sat by Pulse Oximetry (%) 97 05/26/20 05:48 Breast Exam: Yes: Soft Uterus: Yes: Fundus Firm Abdomen/GI: Yes: Abdomen soft, Tolerating PO Lochia: Yes: Rubra Lochia, amount: Moderate Perineum: Yes: Intact Activity: Ambulating - Labs Labs: CBC WBC 13.7 K/mm3 (4.0-10.0) H 05/26/20 08:25 RBC 3.98 M/mm3 (3.60-5.2) 05/26/20 08:25 Hgb 12.5 GM/dL (10.7-15.3) 05/26/20 08:25 Hct 36.3 % (32.4-45.2) 05/26/20 08:25 MCV 91.0 fl (80-96) 05/26/20 08:25 MCH 31.4 pg (25.7-33.7) 05/26/20 08:25 MCHC 34.5 g/dl (32.0-36.0) 05/26/20 08:25 RDW 13.7 % (11.6-15.6) 05/26/20 08:25 Plt Count 124 K/MM3 (134-434) L 05/26/20 08:25 MPV 10.1 fl (7.5-11.1) 05/26/20 08:25 Absolute Neuts (auto) 10.0 K/mm3 (1.5-8.0) H 05/26/20 08:25 Neutrophils % 73.0 % (42.8-82.8) 05/26/20 08:25 Lymphocytes % 19.0 % (8-40) D 05/26/20 08:25 Monocytes % 5.6 % (3.8-10.2) 05/26/20 08:25 Eosinophils % 2.0 % (0-4.5) 05/26/20 08:25 Basophils % 0.4 % (0-2.0) 05/26/20 08:25 Nucleated RBC % 0 % (0-0) 05/26/20 08:25 Problem List - Problems (1) 38 weeks gestation of Problems reviewed: Yes Code(s): Z3A.38 - 38 WEEKS GESTATION OF (2) Status post normal vaginal delivery Problems reviewed: Yes Code(s): EPH3252 - Assessment/Plan Status post normal vaginal delivery Stable Continue routine care
[2020-05-26] MEDS ORDERED: SENNOSIDES/DOCUSATE COMBO (SENNA PLUS) TABLET (UD) PO PRN (22:00)
[2020-05-27] MEDS: FERROUS SO4 325 MG TABLET (FP) PO SCH ×2 (08:16→12:00)
[2020-05-27] MEDS: IBUPROFEN 600 MG TABLET (FP) PO PRN (08:16)
[2020-05-27] MEDS: ACETAMINOPHEN 325 MG TABLET (FP) PO PRN (08:16)
[2020-05-27 09:24] VITALS: BP 107/56; PULSE 69; TEMP 97.8
[2020-05-27] MEDS: PRENATAL VITAMINS W/ FOLIC ACID TABLET (FP) PO SCH (09:54)
--- NOTE | 2020-05-29 20:45 | DS ---
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 Vital Signs: Vital Signs Temperature 97.8 F 05/27/20 09:00 Pulse Rate 69 05/27/20 09:00 Respiratory Rate 18 05/27/20 09:00 Blood Pressure 107/56 L 05/27/20 09:00 O2 Sat by Pulse Oximetry (%) 97 05/26/20 05:48 Constitutional: Yes: Well Nourished Eyes: Yes: Conjunctiva Clear HENT: Yes: Atraumatic Neck: Yes: Supple Cardiovascular: Yes: Regular Rate and Rhythm Respiratory: Yes: Regular Gastrointestinal: Yes: Normal Bowel Sounds External Genitalia: Yes: Normal Vaginal Exam: Yes: Bleeding Cervix: Yes: Bleeding ....Post : Yes: Uterus firm, Moderate lochia serosa Breast(s): Yes: WNL Musculoskeletal: Yes: WNL Extremities: Yes: WNL Neurological: Yes: Alert, Oriented ...Motor Strength: WNL Psychiatric: Yes: Alert, Oriented Labs: CBC, BMP 05/26/20 08:25 05/25/20 10:45 Delivery - Delivery Vaginal Delivery: Spontaneous Type of Anesthesia: Local Episiotomy/Laceration: None EBL (cc): 300 Delivery, Single - Stages of Labor Date 1st Stage Initiatied: 05/25/20 Time 1st Stage Initiated: 03:30 Date 2nd Stage Initiated: 05/25/20 Time 2nd Stage Initiated: 11:10 Date of Delivery: 05/25/20 Time of Delivery: 11:16 Time Placenta Delivered: 11:20 - Condition of Sustainable Agriculture Specialist/Concrete Mixer Truck Driver Present: Yes Name: Delia Garber Gender: Female Weight: 6 lb 4 oz Position: Left, OA Total Hours ROM (Hrs/Mins): 20min - 1 Minute Total Score: 9 5 Minutes Total Score: 9 - [place] Feeding Plan Initial Plan: Elected not to breastfeed exclusively throughout hospitalization Discharge Summary Problems reviewed: Yes Reason For Visit: LABOR ADMIT Procedures: Principal: Normal vaginal delivery Hospital Course: Routine care Health Concerns: None Plan of Treatment: Analgesia as needed F/U with MD in 6 weeks Goals: Resume regular activities in 6 weeks Condition: Good - Instructions Diet, Activity, Other Instructions: Regular diet No douching, no sexual intercourse x 6 weeks F/U with MD in 6 weeks Disposition: HOME - Home Medications Comprehensive Discharge Medication List: Ambulatory Orders Ferrous Sulfate [Feosol] 325 mg PO DAILY 05/25/20 Pnv No.95/Ferrous Fum/Folic AC [ Vitamin Tablet] 1 each PO DAILY 05/25/20
== END 2020-05-27 14:10 | disposition home or self-care (01) | DRG 560 ==
LOC: JLDR 09:35 → J3W 13:00
PROVIDERS: ADMIT Obstetrics & Gynecology; ATTEND Obstetrics & Gynecology
PROC: 10E0XZZ Delivery of Products of Conception, External Approach (ICD-10-PCS; principal; 2020-05-25)
DX: O80 Encounter for full-term uncomplicated delivery (principal); Z3A.38 38 weeks gestation of pregnancy; Z37.0 Single live birth
CPT/HCPCS: 36415; 59409; 80053; 80307; 85025; 85610; 85730; 86762; 86780; 86850; 86900; 86901; 87340; 87389

== ENCOUNTER 2022-01-01 00:55 | Emergency (ER) | payer OTHER ==
[2022-01-01 01:15] VITALS: BP 105/57; PULSE 69; TEMP 97.5; BMI 25.7
== END 2022-01-01 02:18 | disposition left against medical advice (07) ==
LOC: JER 00:55
DX: O26.893 Other specified pregnancy related conditions, third trimester (principal); Z3A.32 32 weeks gestation of pregnancy; J45.909 Unspecified asthma, uncomplicated; Y04.2XXA Assault by strike against or bumped into by another person, initial encounter; Y93.89 Activity, other specified; Y92.89 Other specified places as the place of occurrence of the external cause
CPT/HCPCS: 99282-25

== ENCOUNTER 2022-01-30 05:45 | Inpatient (IN) | payer OTHER ==
[2022-01-30 06:41] VITALS: BMI 27.4
[2022-01-30] MEDS ORDERED: AMPICILLIN - 2 GM in SODIUM CHLORIDE 100 ML IVPB ONE (06:43)
[2022-01-30] MEDS ORDERED: PROMETHAZINE HCL 25 MG/1 ML VIAL IVPUSH ONE (06:45)
[2022-01-30] MEDS ORDERED: DEXTROSE 5%-LACTATED RINGERS 1,000 ML IV SCH (06:45)
[2022-01-30] MEDS ORDERED: SODIUM CHLORIDE 100 ML IVPB ONE (06:57)
[2022-01-30] MEDS ORDERED: AMPICILLIN SODIUM 2 GM VIAL ONE (06:57)
[2022-01-30] MEDS ORDERED: OXYTOCIN 30 UNITS in 0.9% NS 30 UNIT/500 ML INFUS.BAG IVPB SCH (07:00)
[2022-01-30] MEDS ORDERED: BUTORPHANOL TARTRATE 1 MG/ML VIAL IVPUSH ONE (07:15)
[2022-01-30] MEDS ORDERED: ELECTROLYTE-148 SOLN 1,000 ML IV SCH (07:15)
[2022-01-30 07:18] LABS: BASO % 0.4 % (0-2.0); EOS % 1.9 % (0-4.5); HEMATOCRIT 35.5 % (32.4-45.2); LYMPH % 15.1 % (8-40); MCH 30.4 pg (25.7-33.7); MCHC 33.7 g/dl (32.0-36.0); MEAN PLT VOLUME 10.2 fl (7.5-11.1); MONO % 6.9 % (3.8-10.2); NEUT % 75.7 % (42.8-82.8); PLATELET COUNT 131 10^3/uL (134-434); RBC 3.94 M/mm3 (3.60-5.2); RDW 13.3 % (11.6-15.6); WHITE BLOOD COUNT 11.4 K/mm3 (4.0-10.0)
[2022-01-30 07:19] LABS: INR 0.97 (0.83-1.09); PROTHROMBIN TIME (PATIENT) 11.1 SEC (9.7-13.0)
[2022-01-30 07:22] LABS: ACTIVATED PTT 29.5 SECONDS (25.2-36.5)
[2022-01-30 07:28] LABS: CALCIUM 8.8 mg/dL (8.5-10.1)
[2022-01-30] MEDS ORDERED: FENTANYL/BUPIVACAINE/NS/PF - PCEA - 50 ML DISP.SYRIN EP ONE (07:28)
[2022-01-30 07:32] LABS: CREATININE 0.4 mg/dL (0.55-1.3)
[2022-01-30] MEDS ORDERED: BUPIVACAINE HCL/PF 0.25% (2.5MG/ML) 10 ML VIAL ONE (07:33)
[2022-01-30] MEDS ORDERED: NALOXONE HCL 0.4 MG/ML VIAL IVPUSH PRN (08:00)
[2022-01-30] MEDS ORDERED: FENTANYL/BUPIVACAINE/NS/PF - PCEA - 50 ML DISP.SYRIN EP SCH (08:00)
[2022-01-30] MEDS ORDERED: OXYTOCIN 30 UNITS in 0.9% NS 30 UNIT/500 ML INFUS.BAG IVPB ONE (08:09)
[2022-01-30] MEDS ORDERED: OXYTOCIN 20 UNITS in 0.9% NS 20 UNIT/1,000 ML INFUS.BAG IV ONE (10:42)
[2022-01-30] MEDS ORDERED: LIDOCAINE HCL 1% PRESERVATIVE FREE - 30ML VIAL ONE (10:42)
[2022-01-30 12:03] LABS: COCAINE, UR NEGATIVE (NEGATIVE); METHADONE, UR NEGATIVE (NEGATIVE); OPIATES, URI NEGATIVE (NEGATIVE); URINE BENZODIAZEPINES NEGATIVE (NEGATIVE)
[2022-01-30 12:04] LABS: PHENCYCLIDINE,URINE NEGATIVE (NEGATIVE)
[2022-01-30] MEDS ORDERED: METHYLERGONOVINE MALEATE 0.2 MG/1 ML AMP IM PRN (12:11)
[2022-01-30] MEDS ORDERED: BENZOCAINE 28 GM HEMORRHOIDAL OINTMENT TP PRN (12:11)
[2022-01-30] MEDS ORDERED: ACETAMINOPHEN 325 MG TABLET (FP) PO PRN (12:11)
[2022-01-30] MEDS ORDERED: BENZOCAINE 20% 57 GM BOTTLE TP PRN (12:11)
[2022-01-30] MEDS ORDERED: WITCH HAZEL 50% (TUCKS) 40 PAD/JAR PAD TP PRN (12:11)
[2022-01-30] MEDS ORDERED: BISACODYL 10 MG SUPP.RECT RC PRN (12:11)
[2022-01-30 12:12] LABS: URINE AMPHETAMINES NEGATIVE (NEGATIVE); URINE BARBITURATES NEGATIVE (NEGATIVE)
[2022-01-30] MEDS ORDERED: OXYTOCIN 20 UNITS in 0.9% NS 20 UNIT/1,000 ML INFUS.BAG IV SCH (12:15)
[2022-01-30 12:41] LABS: POC NITRAZINE POS
[2022-01-30] MEDS: AMPICILLIN - 1 GM in SODIUM CHLORIDE 100 ML IVPB SCH ×2 (12:49→15:11)
[2022-01-30 14:14] LABS: HIV INTERPRETATION NEGATIVE (NEGATIVE)
[2022-01-30] MEDS: IBUPROFEN 600 MG TABLET (FP) PO PRN (19:40)
[2022-01-31] MEDS: IBUPROFEN 600 MG TABLET (FP) PO PRN ×4 (04:32→20:11)
[2022-01-31 08:14] LABS: BASO % 0.3 % (0-2.0); EOS % 2.9 % (0-4.5); HEMATOCRIT 33.9 % (32.4-45.2); HEMOGLOBIN 11.5 GM/dL (10.7-15.3); LYMPH % 18.2 % (8-40); MCH 30.7 pg (25.7-33.7); MEAN CELL VOLUME 90.3 fl (80-96); MEAN PLT VOLUME 10.2 fl (7.5-11.1); MONO % 6.3 % (3.8-10.2); NEUT % 72.3 % (42.8-82.8); PLATELET COUNT 127 10^3/uL (134-434); RBC 3.76 M/mm3 (3.60-5.2); RDW 13.7 % (11.6-15.6); WHITE BLOOD COUNT 10.6 K/mm3 (4.0-10.0)
[2022-01-31] MEDS ORDERED: SENNOSIDES/DOCUSATE COMBO (SENNA PLUS) TABLET (UD) PO PRN (22:00)
[2022-02-01 10:54] VITALS: BP 98/59; PULSE 75; TEMP 98.5
== END 2022-02-01 14:25 | disposition home or self-care (01) | DRG 560 ==
LOC: JDEL 05:45 → JLDR 06:00 → J3W 14:00
PROVIDERS: ADMIT Obstetrics & Gynecology; ATTEND Obstetrics & Gynecology
PROC: 10E0XZZ Delivery of Products of Conception, External Approach (ICD-10-PCS; principal; 2022-01-30)
DX: O42.013 Preterm premature rupture of membranes, onset of labor within 24 hours of rupture, third trimester (principal); Z3A.37 37 weeks gestation of pregnancy; Z37.0 Single live birth
CPT/HCPCS: 36415; 59409; 80048; 80307; 83986-QW; 85025; 85610; 85730; 86780; 86850; 86900; 86901; 87389